=== PATIENT | female | born 1960 | race Caucasian/White ===

== ENCOUNTER → 2019-06-07 | Outpatient (CLI) | payer OTHER ==
[~2019-06-07] MED LIST: CYMBALTA20 MG PO; FLONASE 0.05%50 MCG NASAL; LEVAQUIN 500 M500 M4 PO; LEVOTHYROXINE 0.1 MG; MEDROLDOSEPACK PO; SYMBICORT160 MCG/4. INH
== END ==
LOC: M.RAD 07:23
DX: Z12.31 Encounter for screening mammogram for malignant neoplasm of breast (principal)

== ENCOUNTER → 2019-11-07 | Outpatient (CLI) | payer OTHER ==
--- NOTE | 2019-11-07 16:37 | CARDNUC ---
[place] [address] CARDIAC NUCLEAR IMAGING REPORT Name: CHAPO ALTAMIRANO Room: [facility]#: [id number] Admission: 11/07/19 Attend Phys: Maninder Andres MD Discharge: Date of : 60 Date of Service: 11/07/19 1637 Report #: [id number] THIS REPORT FOR: //name// APPROVED REPORT Imaging Protocol: Rest Tc-99m/Stress Tc-99m 1 day Study performed: 11/07/2019 07:30:00 Indication: Abnormal EKG Patient Location: Out-Patient Stress Tech: Tiffany Kumar Stress Nurse: Mary Worthington RN NM Tech:DARLING Lynn Ht: 5 ft 4 in Wt: 149 lbs BSA: 1.73 m2 BMI: 25.57 Medical History Medications: nno cardiac meds Allergies: codeine, erythromycin, penicillin, sulfa Cardiac Risk Factors: age, former smoker, family hx Exercise History: Physically active Resting Data Rest SPECT myocardial perfusion imaging was performed in supine position 30 minutes following the intravenous injection of 11.6 mCi of Tc-99m Sestamibi. Time of rest injection: 0755 Date: 11/07/2019 The images were gated to evaluate regional wall motion and calculate left ventricular ejection fraction. Administration Route: IV Administration Site: Right AC Exercise Stress At peak stress, the patient was injected intravenously with 33.8mCi of Tc-99m Sestamibi. Time of stress injection: 929 Date: 11/07/2019 Administration Route: IV Administration Site: Right AC Gated Stress SPECT was performed 30 minutes after stress injection. The images were gated to evaluate regional wall motion and calculate left ventricular ejection fraction. Stress only was performed [place] [address] CARDIAC NUCLEAR IMAGING REPORT Name: CHAPO ALTAMIRANO Room: [facility]#: [id number] Admission: 11/07/19 Attend Phys: Maninder Andres MD Discharge: Date of : 60 Date of Service: 11/07/19 1637 Report #: [id number] Stress Test Details Stress Test: Exercise stress testing was performed using a Kian protocol. HR Max Heart Rate (APMHR): 161 bpm Resting HR: 83 bpm Target HR (85% APMHR): 136 bpm Max HR Achieved: 164 bpm % of APMHR: 101 Recovery HR: 105 bpm HR response to stress: Normal HR response to stress BP Resting BP: 185/94 mmHg Max BP: 180/88 mmHg Recovery BP: 158/89 mmHg BP response to stress: Normal blood pressure response to stress. ECG Resting ECG: Sinus Rhythm Stress ECG: Sinus Tachycardia ST Change: None Arrhythmia: None Recovery ECG: Sinus Rhythm Recovery ST Change: None Recovery Arrhythmia: None Clinical Reason for Termination: Dyspnea Exercise duration: 7 min 0 sec Exercise capacity: 8.6 METs Functional Aerobic Impairment 102% The patient tolerated standard Kian protocol exercise without significant cardiac symptoms. The patient exhibited reasonable exercise tolerance. Stress ECG Conclusion The baseline 12-lead EKG show sinus rhythm without significant ST or T wave abnormality. EKGs obtained during and post exercise showed sinus rhythm and sinus tachycardia with no significant ST or T wave changes when compared to baseline. There were no stress-induced arrhythmias. Study Quality Study: Good Artifact: [place] [address] CARDIAC NUCLEAR IMAGING REPORT Name: CHAPO ALTAMIRANO Room: [facility]#: [id number] Admission: 11/07/19 Attend Phys: Maninder Andres MD Discharge: Date of : 60 Date of Service: 11/07/19 1637 Report #: [id number] Study Data At rest, the left ventricular ejection fraction was 62%.. Post stress, the left ventricular ejection was 74%.. TID = 0.77. Perfusion Perfusion images at rest show a focal apical defect consistent with apical thinning artifact. Perfusion images obtained post exercise stress show uniform uptake of the radioisotope throughout the myocardium without defect. Wall Motion Normal left ventricular wall motion. Nuclear Conclusion ECG Findings: negative for ischemia Clinical Findings: negative for ischemia Nuclear Findings: negative for ischemia Exercise Capacity: normal Left Ventricular Function: normal Risk Study: low Myocardial perfusion images show no defect to suggest infarct or ischemia. Left ventricular systolic function was normal on gated studies. This is a low risk study. <Conclusion> The baseline 12-lead EKG show sinus rhythm without significant ST or T wave abnormality. EKGs obtained during and post exercise showed sinus rhythm and sinus tachycardia with no significant ST or T wave changes when compared to baseline. There were no stress-induced arrhythmias. <ELECTRONICALLY SIGNED> By: Donald Cortes MD, FACC 11/07/19 1637 1637 1637 Donald Cortes MD, FACC /INF
== END ==
LOC: M.NUC 10-23 07:56
DX: R94.31 Abnormal electrocardiogram [ECG] [EKG] (principal); Z87.891 Personal history of nicotine dependence; Z88.5 Allergy status to narcotic agent; Z88.1 Allergy status to other antibiotic agents; Z88.0 Allergy status to penicillin; Z88.2 Allergy status to sulfonamides

== ENCOUNTER → 2021-04-30 | Outpatient (CLI) | payer OTHER | LOC: M.RAD 09:02 | PROVIDERS: ATTEND Physician Assistant | DX: Z12.31 Encounter for screening mammogram for malignant neoplasm of breast (principal) ==

== ENCOUNTER → 2021-05-04 | Outpatient (CLI) | payer OTHER | LOC: M.RAD 15:30 | PROVIDERS: ATTEND Physician Assistant | DX: Z13.820 Encounter for screening for osteoporosis (principal); M85.88 Other specified disorders of bone density and structure, other site ==